=== PATIENT | male | born 1935 | race Caucasian/White ===

== ENCOUNTER 2017-09-12 06:02 | Day surgery (SDC) | payer OTHER ==
[2017-09-12] VITALS (8 sets, daily range): BP systolic 108–147; BP diastolic 44–67; PULSE 53–61; RESP 18; TEMP 97.6–97.7; O2SAT 92–96
[~2017-09-12] VITALS: Ht 165.1 cm; Wt 72.7 kg
[~2017-09-12 06:02] MED LIST: 1-ME1LIQ PO; ATOR40TA49 PO; FENO160T2 PO; GLIM4TAB PO; GLUCTAB PO; JANU100T PO; LOSA25TA31 PO; PRED20 PO; ST JTAB PO; TOPR50TA PO
[2017-09-12] MEDS ORDERED: NOVONP2 SQ (06:44)
[2017-09-12] MEDS ORDERED: NOVORP2 SQ (06:44)
[2017-09-12] MEDS ORDERED: FENO160T PO (06:44)
[2017-09-12] MEDS ORDERED: METF1000 PO (06:44)
[2017-09-12] MEDS ORDERED: GLIM4TAB PO (06:44)
[2017-09-12] MEDS ORDERED: LIPI40TA PO (06:44)
[2017-09-12] MEDS ORDERED: LOSA25TA PO (06:44)
[2017-09-12] MEDS ORDERED: ASPI-516 CHEW (06:44)
[2017-09-12] MEDS ORDERED: MAGN400T2 PO (06:44)
[2017-09-12] MEDS ORDERED: VITA10002 PO (06:44)
[2017-09-12] MEDS ORDERED: METO50TA PO (06:44)
[2017-09-12] MEDS ORDERED: DEXTROSE 50% IN WATER 50 ML SYRINGE ONE (06:51)
[2017-09-12] MEDS ORDERED: SODIUM CHLORIDE 2 ML FLUSH PRN IV FLUSH (07:00)
[2017-09-12] MEDS ORDERED: SODIUM CHLOR 0.9% 1000 ML IV SCH (07:00)
[2017-09-12] MEDS ORDERED: LIDOCAINE 1%/EPINEPHrine 1:100,000 SOLN 50 ML VIAL ONE (07:52)
[2017-09-12] MEDS ORDERED: LORazepam 2 MG/ML VIAL ONE (08:29)
[2017-09-12] MEDS ORDERED: SODIUM CHLORIDE 2 ML FLUSH BID IV FLUSH SCH (09:00)
--- NOTE | 2017-09-12 12:47 | RADRPT ---
EXAM DATE/TIME: 09/12/2017 08:38 [place] COMPARISON: No previous studies available for comparison. INDICATIONS : Abnormal LFT's SEDATION TIME: 25 minutes BIOPSY SITE: MEDICATION(S): 1.) 75 mcg fentanyl (Sublimaze) IV 2.) 1 mg lorazepam (Ativan) IV DEVICE(S): 1.) 18 gauge Tem[place] core biopsy needle 9 cm MEDICAL HISTORY : Chronic obstructive pulmonary disease. Cardiovascular disease. SURGICAL HISTORY : Cholecystectomy ENCOUNTER: Initial ACUITY: 1 day PAIN SCORE: 0/10 LOCATION: Right upper quadrant A total of one core specimen(s) were obtained and sent to the laboratory for pathologic evaluation. PROCEDURE: 1. CT guided liver biopsy. 2. Conscious sedation with continuous EKG and oximetry monitoring. 3. EKG and oximetry remained stable throughout the procedure. Prior to the procedure informed consent was obtained. Any appropriate prior imaging studies were rev iewed. Using automated exposure control and adjustment of the mA and/or kV according to patient size, radiat ion dose was kept as low as reasonably achievable to obtain optimal diagnostic quality images. DICOM format image data is available electronically for review and comparison. The site was prepped in a sterile fashion. Full sterile technique was used, including cap, mask, beulah rile gloves and gown and a large sterile sheet. Hand hygiene and 2% chlorhexidine and/or betadine/al cohol prep was utilized per protocol for cutaneous antisepsis. The skin and subcutaneous tissues wer e infiltrated with local anesthetic solution. With CT guidance the previously identified target was localized. Biopsy was performed using the presc ribed needle as above. Adequate hemostasis was obtained with compression at the puncture site. Follow-up CT scan reveals no hemorrhage. The patient tolerated the procedure well and there were no complications. The patient was returned to the Radiology Outpatient Unit in stable condition. CONCLUSION: Uncomplicated CT guided biopsy. Rodger Funes MD on September 12, 2017 at 12:45 Board Certified Radiologist. This report was verified electronically.
== END 2017-09-12 13:14 | disposition home or self-care (01) ==
LOC: HRAD 06:02 → HRIP 06:07 → HRAD 13:14
PROVIDERS: ATTEND Internal Medicine Gastroenterology
DX: R94.5 Abnormal results of liver function studies (principal); J44.9 Chronic obstructive pulmonary disease, unspecified; I25.10 Atherosclerotic heart disease of native coronary artery without angina pectoris
CPT/HCPCS: 47000; 77012; 82948; 88307; 88313; J2060; J3010; J7030